=== PATIENT | female | born 1985 | race African-American/Black ===

== ENCOUNTER 2021-05-10 09:15 | Emergency (ER) | payer MEDICAID ==
[~2021-05-10] VITALS: Ht 165.1 cm; Wt 53.7 kg
[2021-05-10 09:20] VITALS: BP 154/78
--- NOTE | 2021-05-10 09:27 | NUR ---
36 Y/O F AMBULATED TO BED 4, C/O COUGH AND RIGHT SIDED CHEST PAIN THAT FEELS TIGHT AND HURTS TO TAKE A DEEP BREATH 9/10 PAIN SINCE 5 AM THIS MORNING. DENIES FEVER, CHILLS, SORE THROAT. NKDA PMH: DENIES
--- NOTE | 2021-05-10 09:28 | NUR ---
PT AMBULATED TO BED 4.
--- NOTE | 2021-05-10 09:30 | NUR ---
DR SHARIF AT BEDSIDE FOR MSE
[2021-05-10] MEDS ORDERED: KETOROLAC 60 MG/2 ML VIAL IM ONE (09:35)
--- NOTE | 2021-05-10 09:36 | NUR ---
AYA EMT AT BEDSIDE FOR EKG
--- NOTE | 2021-05-10 09:50 | NUR ---
XR AT BEDSIDE FOR PORTABLE CXR
[2021-05-10] MEDS ORDERED: TRAM50TA1 PO (11:06)
[2021-05-10] MEDS ORDERED: NAPR-1704 PO (11:06)
[2021-05-10 11:15] VITALS: BP 111/67
--- NOTE | 2021-05-10 11:15 | NUR ---
Patient discharged with v/s stable. Written and verbal after care instructions given and explained. Patient alert, oriented and verbalized understanding of instructions. Ambulatory with steady gait. All questions addressed prior to discharge. ID band removed. Patient advised to follow up with PMD. Rx of NAPROXEN, TRAMADOL given. Patient educated on indication of medication including possible reaction and side effects. Opportunity to ask questions provided and answered.
== END 2021-05-10 11:15 | disposition home or self-care (01) ==
LOC: MED 09:15
DX: R07.9 Chest pain, unspecified (principal); R05.9 Cough, unspecified; R09.81 Nasal congestion
CPT/HCPCS: 71045; 93005; 96372; 99283; J1885

== ENCOUNTER 2021-09-27 08:24 | Emergency (ER) | payer MEDICAID ==
[~2021-09-27] VITALS: Ht 165.1 cm; Wt 55.6 kg
[~2021-09-27 08:24] MED LIST: NAPR-1704 PO; TRAM50TA1 PO
[2021-09-27 08:30] VITALS: BP 122/65
--- NOTE | 2021-09-27 09:03 | NUR ---
PT AMBULATE TO ROOM 7. STEADY GAIT. PT IN A GOWN .
--- NOTE | 2021-09-27 09:21 | NUR ---
36YR OLD FEMALE BIB SELF C/O HIVES X1DAY. INSECT BITE ON R ANKLE X2 DAYS AGO. HIVES/RASH TO UPPER/LOWER EXT, CHEST AREA, FACE/EYES. 5/10 PAIN IN HANDS. PT STATES HAVING PAIN IN JOANN HANDS. DENIES SOB OR CP . DENIES FEVER OR N/V. RESP EVEN AND UNLABORED. NKDA NO MED HX
--- NOTE | 2021-09-27 09:25 | NUR ---
36/F PRESENTS TO ED WITH C/O HIVES X1 DAY. STATES SHE WAS AT WORK AND BELIEVES A BUG BIT HER, PT WITH HIVES TO UPPER AND LOWER EXTREMITIES AND REDNESS IN ANKLES. PATIENT REPORTS 5/10 PAIN, DENIES SOB, CP.
[2021-09-27] MEDS ORDERED: HYDR28CR38 TP (09:47)
[2021-09-27] MEDS ORDERED: BEN50 PO (09:47)
[2021-09-27] MEDS ORDERED: PRED20TA5 PO (09:47)
[2021-09-27] MEDS ORDERED: predniSONE 20 MG TAB PO ONE (09:50)
[2021-09-27 09:55] VITALS: BP 122/65
--- NOTE | 2021-09-27 09:55 | NUR ---
Patient discharged with v/s stable. Written and verbal after care instructions given and explained. Patient verbalized understanding. with steady gait. All questions addressed prior to discharge. Advised to follow up with PMD.
--- NOTE | 2021-09-27 10:00 | NUR ---
The patient's care was reviewed and supervised by Tiffany Amador RN.
== END 2021-09-27 09:55 | disposition home or self-care (01) ==
LOC: MED 08:24
DX: T78.40XA Allergy, unspecified, initial encounter (principal); Z79.899 Other long term (current) drug therapy; X58.XXXA Exposure to other specified factors, initial encounter
CPT/HCPCS: 99283; J7512

== ENCOUNTER 2021-10-21 17:09 | Emergency (ER) | payer MEDICAID ==
[~2021-10-21] VITALS: Ht 165.1 cm; Wt 56.2 kg
[~2021-10-21 17:09] MED LIST changes: +BEN50 PO; +HYDR28CR38 TP; +PRED20TA5 PO
[2021-10-21 17:18] VITALS: BP 133/75
--- NOTE | 2021-10-21 17:20 | NUR ---
AMBULATED TO BED 4
--- NOTE | 2021-10-21 17:26 | NUR ---
george vargas at bedside for evaluation
--- NOTE | 2021-10-21 17:30 | NUR ---
36 y/o female, c/o mid back pain, s/p injury at work today. 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 Rates pain 9/10, sharp, nonradiating. Denies taking medication for pain. pmh: LE nerve damage nka meds: gabapentin
[2021-10-21] MEDS ORDERED: KETOROLAC 30 MG/ML VIAL IM ONE (17:35)
[2021-10-21] MEDS ORDERED: CYCL-711 PO (18:06)
[2021-10-21] MEDS ORDERED: IBUP-2213 PO (18:06)
[2021-10-21] MEDS ORDERED: LID5T TP (18:06)
[2021-10-21 18:12] VITALS: BP 133/75
--- NOTE | 2021-10-21 18:12 | NUR ---
Patient discharged with v/s stable. Written and verbal after care instructions about back injury given and explained. Patient alert, oriented and verbalized understanding of instructions. Ambulatory with steady gait. All questions addressed prior to discharge. ID band removed. Patient advised to follow up with PMD. Rx of Ibuprofen, Lidocaine patch, Flexeril given. Patient educated on indication of medication including possible reaction and side effects. Opportunity to ask questions provided and answered.
== END 2021-10-21 18:12 | disposition home or self-care (01) ==
LOC: MED 17:09
DX: M54.50 Low back pain, unspecified (principal)
CPT/HCPCS: 81025; 96372; 99283; J1885

== ENCOUNTER 2022-02-03 11:35 | Emergency (ER) | payer MEDICAID ==
[~2022-02-03] VITALS: Ht 165.1 cm; Wt 57.2 kg
[~2022-02-03 11:35] MED LIST changes: +CYCL-711 PO; +IBUP-2213 PO; +LID5T TP; +TRAM-748 PO; -TRAM50TA1 PO
[2022-02-03] MEDS ORDERED: KETOROLAC 30 MG/ML VIAL IM ONE (12:05)
[2022-02-03 12:27] VITALS: BP 122/74
[2022-02-03] MEDS ORDERED: IBUP-2213 PO (12:43)
[2022-02-03] MEDS ORDERED: BPM/118S31 PO (12:43)
[2022-02-03] MEDS ORDERED: NIRM1TAB5 PO ×2 (12:44→13:53)
[2022-02-03 13:20] VITALS: BP 122/74
--- NOTE | 2022-02-03 13:20 | NUR ---
Patient discharged with v/s stable. Written and verbal after care instructions given and explained. Patient alert, oriented and verbalized understanding of instructions. Ambulatory with steady gait. All questions addressed prior to discharge. ID band removed. Patient advised to follow up with PMD. Rx of brompheniramine, ibuprofen, nirmatrelvir (Sent) given. Patient educated on indication of medication including possible reaction and side effects. Opportunity to ask questions provided and answered.
== END 2022-02-03 13:20 | disposition home or self-care (01) ==
LOC: MED 11:35
DX: U07.1 COVID-19 (principal); Z79.899 Other long term (current) drug therapy; Z79.1 Long term (current) use of non-steroidal anti-inflammatories (NSAID); Z79.891 Long term (current) use of opiate analgesic
CPT/HCPCS: 71045; 96372; 99283; J1885; Q0092

== ENCOUNTER 2022-12-29 11:46 | Emergency (ER) | payer MEDICAID ==
[~2022-12-29] VITALS: Ht 165.1 cm; Wt 57.6 kg
[~2022-12-29 11:46] MED LIST changes: +BROM118S70 PO; +NIRM1TAB5 PO
[2022-12-29 11:50] VITALS: BP 131/83; PULSE 95; RESP 16; TEMP 98; O2SAT 98
== END 2022-12-29 12:52 | disposition home or self-care (01) ==
LOC: MED 11:46
DX: M79.645 Pain in left finger(s) (principal); Z79.899 Other long term (current) drug therapy
CPT/HCPCS: 73130; 99283

== ENCOUNTER 2023-03-14 07:15 | Emergency (ER) | payer MEDICAID | END 2023-03-14 07:44 | disposition left against medical advice (07) | LOC: MED 07:15 | DX: R07.9 Chest pain, unspecified (principal); Z53.21 Procedure and treatment not carried out due to patient leaving prior to being seen by health care provider ==

== ENCOUNTER 2023-05-01 15:34 | Emergency (ER) | payer MEDICAID, OTHER ==
[~2023-05-01] VITALS: Ht 165.1 cm; Wt 59.0 kg
[2023-05-01 15:44] VITALS: BP 117/81; PULSE 100; RESP 18; TEMP 98.3; O2SAT 97
[2023-05-01] MEDS: ACETAMINOPHEN 325 MG TAB PO ONE (16:18)
== END 2023-05-01 17:11 | disposition home or self-care (01) ==
LOC: MED 15:34
DX: M25.562 Pain in left knee (principal)
CPT/HCPCS: 29505; 73562; 99283